=== PATIENT | female | born 1980 | race Caucasian/White ===

== ENCOUNTER 2017-05-10 16:19 | Emergency (ER) | payer SELFPAY ==
[~2017-05-10] VITALS: Ht 160 cm; Wt 86.2 kg
[~2017-05-10 16:19] MED LIST: LEVO1TAB9 PO
[2017-05-10 16:24] VITALS: BP 160/114
[2017-05-10] MEDS ORDERED: KETOROLAC TROMETHAMINE INJ 60 MG/2 ML VIAL IM ONE (17:00)
[2017-05-10] MEDS ORDERED: KETOROLAC TROMETHAMINE INJ 30 MG/ML VIAL ONE (17:03)
== END 2017-05-10 18:42 | disposition home or self-care (01) ==
LOC: ER 16:21
DX: S13.9XXA Sprain of joints and ligaments of unspecified parts of neck, initial encounter (principal); S29.012A Strain of muscle and tendon of back wall of thorax, initial encounter; S80.02XA Contusion of left knee, initial encounter; M25.462 Effusion, left knee; M17.9 Osteoarthritis of knee, unspecified; V43.52XA Car driver injured in collision with other type car in traffic accident, initial encounter; Y93.89 Activity, other specified; Y92.89 Other specified places as the place of occurrence of the external cause; Y99.8 Other external cause status
CPT/HCPCS: 73564; 96372; 99284; A4606; J1885; Z7610

== ENCOUNTER 2023-02-19 18:25 | Emergency (ER) | payer MEDICAID, OTHER ==
[~2023-02-19] VITALS: Ht 160 cm; Wt 73.9 kg
[2023-02-19] MEDS ORDERED: CARI350T PO (19:14)
[2023-02-19 19:22] VITALS: BP 107/70; TEMP 98.2; O2SAT 98
== END 2023-02-19 19:22 | disposition home or self-care (01) ==
LOC: ER 18:34
DX: S23.3XXA Sprain of ligaments of thoracic spine, initial encounter (principal); I10 Essential (primary) hypertension; V89.2XXA Person injured in unspecified motor-vehicle accident, traffic, initial encounter; Y93.89 Activity, other specified; Y92.89 Other specified places as the place of occurrence of the external cause; Y99.8 Other external cause status